=== PATIENT | female | born 1980 | race Caucasian/White ===

== ENCOUNTER → 2018-12-09 | Outpatient (CLI) | payer OTHER ==
[2018-12-09 18:22] LABS: Bilirubin, Urine Neg (Neg); Blood, Urine Neg (Neg); Glucose Qualitative, Urine Neg (Neg); Ketones, Urine Neg (Neg); Leukocyte Esterase, Urine Neg (Neg); Nitrite, Urine Neg (Neg); Protein, Urine 2+ (Neg); Urobilinogen, Urine NORM (Normal)
[2018-12-09 18:49] LABS: Appearance, Urine Clear (Clear); Bacteria Few /hpf; Color, Urine Yellow (P-Yellow); Red Blood Cells, Urine 0-2 /hpf (0-2); Squamous Epithelial Cells Few /hpf (Few); White Blood Cells, Urine 0-2 /hpf (0-5)
== END | disposition home or self-care (01) ==
LOC: LAB SHORT 15:49 → LAB 15:49
PROVIDERS: Family Medicine
DX: N39.0 Urinary tract infection, site not specified (principal)
CPT/HCPCS: 81001

== ENCOUNTER 2020-06-25 11:30 | Day surgery (SDC) | payer OTHER ==
[~2020-06-25] VITALS: Wt 92.1 kg
[~2020-06-25 11:30] MED LIST: METF500 PO; PREG300 PO; SPIR50 PO
--- NOTE | 2020-06-25 12:31 | NUR ---
REPORT GIVEN TO LARISSA RICHARD RN.
[2020-06-26 04:37] LABS: BASOPHILS ABSOLUTE AUTO 0.02 K/mm3 (0.00-0.23); BASOPHILS PERCENT AUTO 0 % (0-2); EOSINOPHILS PERCENT AUTO 0 % (0-6); Hematocrit 40.2 % (33.0-51.0); Hemoglobin 12.7 g/dL (11.5-16.0); IMMATURE GRAN ABSOLUTE AUTO 0.08 K/mm3 (0.00-0.10); IMMATURE GRAN PERCENT AUTO 0 % (0-1); LYMPHOCYTES ABSOLUTE AUTO 2.24 K/mm3 (0.84-5.20); LYMPHOCYTES PERCENT AUTO 13 % (21-46); MONOCYTES ABSOLUTE AUTO 0.69 K/mm3 (0.16-1.47); MONOCYTES PERCENT AUTO 4 % (4-13); Mean Corpuscular HGB 28.6 pg (26.0-34.0); Mean Corpuscular HGB Conc 31.6 g/dL (31.5-36.5); Mean Corpuscular Volume 91 fL (80-100); Mean Platelet Volume 9.4 fL (9.1-12.4); NEUTROPHILS ABSOLUTE AUTO 14.87 K/mm3 (1.96-9.15); NEUTROPHILS PERCENT AUTO 83 % (41-73); Platelet Count 334 K/mm3 (150-400); RDW Coefficient Variation 13.2 % (11.7-14.2); RDW Standard Deviation 43.9 fL (35.1-46.3); Red Blood Cell Count 4.44 M/mm3 (3.80-5.20)
--- NOTE | 2020-06-26 04:46 | NUR ---
SHIFT SUMMARY POD#1. AAOX4. DISCOMFORT CONTROLLED WITH 2 NORCO Q4-5H. NAUSEA YESTARDAY EVENING CONTROLLED WITH ZOFRAN, NO EMESIS. ABD INCISION WITH GAUZE C/D/I. MENSAH OUT YESTARDAY EVENING, VOIDING WELL. IVF PER ORDERS. GOOD PO INTAKE + OUTPUT. PT UP AMBULATING INDEPENDENTLY IN ROOM + HALLS. PT CURRENTLY RESTING IN ROOM WITH CALL LIGHT WITHIN REACH.
[2020-06-26] MEDS ORDERED: DOCU100 PO (12:16)
[2020-06-26] MEDS ORDERED: ESTRADIOL2 MG PO (12:16)
[2020-06-26] MEDS ORDERED: Milk Of Ma400 MG/5 M PO (12:17)
[2020-06-26] MEDS ORDERED: PROM25 PO (12:18)
[2020-06-26] MEDS ORDERED: SENN187 PO (12:19)
[2020-06-26] MEDS ORDERED: Percocet 5-3251 EACH PO (12:21)
[2020-06-26] MEDS ORDERED: SIME80CH PO (12:22)
[2020-06-26] MEDS ORDERED: IBUP400 PO (12:23)
--- NOTE | 2020-06-26 12:55 | NUR ---
DISCHARGE SUMMARY PT A&OX4, VSS, LEFT FLOOR VIA WC WITH CONSTRUCTION PROJECT COORDINATOR TO GO HOME WITH , WITH ALL PERSONAL POSSESSIONS INCLUDING DC PACKET. DC INSTRUCTIONS PROVIDED. PT REP UNDERSTANDING THOSE INSTRUCTIONS. IV DC'D.
== END 2020-06-26 12:54 | disposition home or self-care (01) ==
LOC: ORSCMMR 11:30 → ORD 12:30 → SURS 18:40 → ORSCMMR 06-26 12:54
PROVIDERS: Obstetrics & Gynecology
PROC: 8E0W4CZ Robotic Assisted Procedure of Trunk Region, Percutaneous Endoscopic Approach (ICD-10-PCS; principal; 2020-06-25 12:30)
PROC: 0UT94ZZ Resection of Uterus, Percutaneous Endoscopic Approach (ICD-10-PCS; principal; 2020-06-25 12:30)
PROC: 0U5F4ZZ Destruction of Cul-de-sac, Percutaneous Endoscopic Approach (ICD-10-PCS; principal; 2020-06-25 12:30)
PROC: 0UT24ZZ Resection of Bilateral Ovaries, Percutaneous Endoscopic Approach (ICD-10-PCS; principal; 2020-06-25 12:30)
DX: N92.0 Excessive and frequent menstruation with regular cycle (principal); N93.8 Other specified abnormal uterine and vaginal bleeding; D25.0 Submucous leiomyoma of uterus; N94.6 Dysmenorrhea, unspecified; R10.2 Pelvic and perineal pain; N80.3 Endometriosis of pelvic peritoneum; K66.0 Peritoneal adhesions (postprocedural) (postinfection); I10 Essential (primary) hypertension; E66.01 Morbid (severe) obesity due to excess calories; Z68.37 Body mass index [BMI] 37.0-37.9, adult; R73.03 Prediabetes; Z79.899 Other long term (current) drug therapy
CPT/HCPCS: 58573; 58662; S2900; 36415; 85025; 86850; 86900; 86901; 88305; 88307; J0690; J1885; J2250; J2370; J2405; J2704; J3010; J7120

== ENCOUNTER 2023-10-23 12:48 | Day surgery (SDC) | payer OTHER ==
[~2023-10-23] VITALS: Ht 157.5 cm; Wt 90.9 kg
[~2023-10-23 12:48] MED LIST changes: +DOCU100 PO; +ESTRADIOL2 MG PO; +Estrace Vagin42.5 GM VAG; +IBUP400 PO; +LISI20 PO; +Milk Of Ma400 MG/5 M PO; +NEURONTIN600 MG PO; +PROM25 PO; +Percocet 5-3251 EACH PO; +SENN187 PO; +SIME80CH PO; +TAMS.4ER PO
[2023-10-23] MEDS ORDERED: ATOR10 (13:05)
[2023-10-23 15:21] VITALS: BP 133/83
== END 2023-10-23 15:19 | disposition home or self-care (01) ==
LOC: ORSCSDS 12:48
PROVIDERS: Surgery
PROC: 0DBL8ZX Excision of Transverse Colon, Via Natural or Artificial Opening Endoscopic, Diagnostic (ICD-10-PCS; principal; 2023-10-23 14:15)
PROC: 0DBP8ZX Excision of Rectum, Via Natural or Artificial Opening Endoscopic, Diagnostic (ICD-10-PCS; principal; 2023-10-23 14:15)
PROC: 0DBN8ZX Excision of Sigmoid Colon, Via Natural or Artificial Opening Endoscopic, Diagnostic (ICD-10-PCS; principal; 2023-10-23 14:15)
DX: K92.1 Melena (principal); D12.3 Benign neoplasm of transverse colon; D12.5 Benign neoplasm of sigmoid colon; D12.8 Benign neoplasm of rectum; K64.1 Second degree hemorrhoids; Z80.0 Family history of malignant neoplasm of digestive organs; E11.9 Type 2 diabetes mellitus without complications; I10 Essential (primary) hypertension; F41.9 Anxiety disorder, unspecified; F32.A Depression, unspecified; E78.2 Mixed hyperlipidemia; Z79.899 Other long term (current) drug therapy
CPT/HCPCS: 82947; 88305; J2405; J2704; J7120

== ENCOUNTER → 2024-09-07 | Outpatient (CLI) | payer OTHER ==
[~2024-09-07] MED LIST changes: +ATOR10
== END ==
LOC: LAB SHORT 16:14 → LAB 16:14
DX: J02.9 Acute pharyngitis, unspecified (principal)
CPT/HCPCS: 87081